=== PATIENT | male | born 1970 | race Caucasian/White ===

== ENCOUNTER 2017-06-05 10:31 | Emergency (ER) | payer BC, OTHER ==
[2017-06-05 10:45] VITALS: TEMP 98.4; BMI 28.0
[2017-06-05 11:38] LABS: EOSINOPHIL 3.7 % (0-4.5); MCH 32.5 pg (25.7-33.7); MCHC 34.5 g/dl (32.0-35.9); MEAN CELL VOLUME 94.2 fl (80-96); MEAN PLT VOLUME 7.7 fl (7.5-11.1); NEUTROPHILS 52.8 % (42.8-82.8); PLATELET COUNT 269 K/MM3 (134-434); RDW 12.8 % (11.9-15.9); WHITE BLOOD COUNT 8.7 K/mm3 (4.0-10.0)
--- NOTE | 2017-06-05 12:02 | PDOC ---
History of Present Illness <Bakari Malcolm - Last Filed: 06/05/17 12:51> <Gary Norman - Last Filed: 06/05/17 16:27> - General Chief Complaint: Chest Pain Stated Complaint: CHEST PRESSURE Time Seen by Provider: 06/05/17 10:56 - History of Present Illness Initial Comments: 06/05/17 11:58 "The patient is a 46 year old male with a significant PMH of asthma who presents to the emergency department with left sided chest pressure and shortness of breath for the past 2-3 weeks. The patient reports feeling a left- sided chest pressure that initially radiated across his chest but is since now localized on the left side. He reports using Advair and Albuterol inhaler with minimal relief. He denies SOB but endorses increased CREWS. Denies orthopnea. 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 Denies any asymmetric leg swelling. Denies h/o DVT/PE. The patient reports having a stress test done in the past which resulted normal. The patient denies headache and dizziness. Denies fever, chills, nausea, vomit, diarrhea and constipation. Denies dysuria, frequency, urgency and hematuria. Allergies: NKA FMHx: Brother had triple bypass surgery. Past surgical history: None reported. Social history: No reported cigarette, alcohol, or drug use. PCP: None reported. " (Gary Norman) Past History <Bakari Malcolm - Last Filed: 06/05/17 12:51> - Past Medical History Asthma: Yes COPD: No Hypercholesterolemia: Yes - Suicide/Smoking/Psychosocial Hx Smoking History: Never smoked Hx Alcohol Use: Yes (SOCIAL) Drug/Substance Use Hx: No <Gary Norman - Last Filed: 06/05/17 16:27> - Past Medical History Allergies/Adverse Reactions: Allergies Allergy/AdvReac Type Severity Reaction Status Date / Time No Known Allergies Allergy Verified 06/05/17 10:52 Home Medications: Ambulatory Orders Salmeterol/Fluticasone [Advair 100Mcg/50Mcg -] 1 inh PO BID 06/05/17 Review of Systems <Bakari Malcolm - Last Filed: 06/05/17 12:51> <Gary Norman - Last Filed: 06/05/17 16:27> - Review of Systems Comments:: 06/05/17 11:59 "GENERAL/CONSTITUTIONAL: No fever or chills. No weakness. HEAD, EYES, EARS, NOSE AND THROAT: No change in vision. No ear pain or discharge. No sore throat. CARDIOVASCULAR: (+) Left-sided chest pressure. RESPIRATORY: No cough, wheezing, or hemoptysis. GASTROINTESTINAL: No nausea, vomiting, diarrhea or constipation. GENITOURINARY: No dysuria, frequency, or change in urination. MUSCULOSKELETAL: No joint or muscle swelling or pain. No neck or back pain. SKIN: No rash NEUROLOGIC: No headache, vertigo, loss of consciousness, or change in strength/ sensation. ENDOCRINE: No increased thirst. No abnormal weight change. HEMATOLOGIC/LYMPHATIC: No anemia, easy bleeding, or history of blood clots. ALLERGIC/IMMUNOLOGIC: No hives or skin allergy. " (Gary Norman) *Physical Exam <Bakari Malcolm - Last Filed: 06/05/17 12:51> <Gary Norman - Last Filed: 06/05/17 16:27> - Vital Signs Last Vital Signs Temp Pulse Resp BP Pulse Ox 98.4 F 98 H 20 161/106 97 06/05/17 10:42 06/05/17 10:42 06/05/17 10:42 06/05/17 10:42 06/05/17 10:42 - Physical Exam Comments: 06/05/17 11:59 "GENERAL: Awake, alert, and fully oriented, in no acute distress HEAD: No signs of trauma EYES: PERRLA, EOMI, sclera anicteric, conjunctiva clear ENT: Auricles normal inspection, hearing grossly normal, nares patent, oropharynx clear without exudates. Moist mucosa NECK: Nontender, no stepoffs, Normal ROM, supple, no lymphadenopathy, JVD, or masses LUNGS: Breath sounds equal, clear to auscultation bilaterally. No wheezes, and no crackles HEART: Regular rate and rhythm, normal S1 and S2, no murmurs, rubs or gallops ABDOMEN: Soft, nontender, normoactive bowel sounds. No guarding, no rebound. No masses EXTREMITIES: Normal range of motion, no edema. No clubbing or cyanosis. No cords, erythema, or tenderness NEUROLOGICAL: Cranial nerves II through XII intact. 5/5 strength and sensation in all extremities, Normal speech, normal gait SKIN: Warm, Dry, normal turgor, no rashes or lesions noted. " (Gary Norman) Heart Score/ECG Review <Bakari Malcolm - Last Filed: 06/05/17 12:51> - History History: Slightly suspicious - Electrocardiogram EKG: Normal - Age Age: 45-65 - Risk Factors Risk Factors Heart Score: Yes Positive family hx of cardiac disease Based on the list above the patient has:: 1-2 risk factors - Troponin Troponin: </= normal limit - Score Heart Score - Total: 2 <Gary Norman - Last Filed: 06/05/17 16:27> - ECG Impressions Comment:: 06/05/17 12:00 NSR, no KOFI/STDs, no TWIs, [place] wnl, intervals wnl, rate 86 (Gary Norman) ED Treatment Course - LABORATORY CBC & Chemistry Diagram: 06/05/17 11:18 06/05/17 11:18 <Bakari Malcolm - Last Filed: 06/05/17 12:51> - LABORATORY CBC & Chemistry Diagram: 06/05/17 11:18 06/05/17 11:18 <Gary Norman - Last Filed: 06/05/17 16:27> - ADDITIONAL ORDERS Additional order review: Laboratory Results 06/05/17 06/05/17 06/05/17 15:05 11:18 11:18 D-Dimer Sodium Cancelled 139 Potassium Cancelled 3.8 Chloride Cancelled 107 Carbon Dioxide Cancelled 26 Anion Gap Cancelled 6 L BUN Cancelled 16 Creatinine Cancelled 1.3 Creat Clearance w eGFR Cancelled 58.92 Random Glucose Cancelled 79 Calcium Cancelled 8.7 Total Bilirubin Cancelled 0.7 AST Cancelled 28 ALT Cancelled 43 Alkaline Phosphatase Cancelled 75 Creatine Kinase 73 882 H Creatine Kinase Index 0.6 CK-MB (CK-2) 5.591 H Troponin I < 0.02 < 0.02 B-Natriuretic Peptide 84.28 Total Protein Cancelled 7.8 Albumin Cancelled 4.0 06/05/17 11:18 D-Dimer < 200 Sodium Potassium Chloride Carbon Dioxide Anion Gap BUN Creatinine Creat Clearance w eGFR Random Glucose Calcium Total Bilirubin AST ALT Alkaline Phosphatase Creatine Kinase Creatine Kinase Index CK-MB (CK-2) Troponin I B-Natriuretic Peptide Total Protein Albumin 06/05/17 11:18 RBC 4.99 MCV 94.2 MCHC 34.5 RDW 12.8 MPV 7.7 Neutrophils % 52.8 Lymphocytes % 36.3 Monocytes % 6.2 Eosinophils % 3.7 Basophils % 1.0 - RADIOLOGY Radiology Studies Ordered: Category Date Time Status CHEST PA & LAT [RAD] Stat Radiology 06/05/17 11:14 Completed Medical Decision Making <Bakari Malcolm - Last Filed: 06/05/17 12:51> <Gary Norman - Last Filed: 06/05/17 16:27> - Medical Decision Making 06/05/17 12:00 46 M with left sided chest pressure x 2-3 weeks. Atypical in nature. EKG with no signs of ischemia, making ACS unlikely. However, pt has +FH of OR (brother), so will r/o OR with trop. Also consider PE, as pt is business management manager. Pt however has no clinical signs or symptoms of DVT and has normal vitals. - Labs, trop, BNP, ddimer - CXR 06/05/17 16:18 CBC,CMP WBC 8.7 K/mm3 (4.0-10.0) 06/05/17 11:18 RBC 4.99 M/mm3 (4.00-5.60) 06/05/17 11:18 Hgb 16.2 GM/dL (11.7-16.9) 06/05/17 11:18 Hct 47.0 % (35.4-49) 06/05/17 11:18 MCV 94.2 fl (80-96) 06/05/17 11:18 MCH 32.5 pg (25.7-33.7) 06/05/17 11:18 MCHC 34.5 g/dl (32.0-35.9) 06/05/17 11:18 RDW 12.8 % (11.9-15.9) 06/05/17 11:18 Plt Count 269 K/MM3 (134-434) 06/05/17 11:18 MPV 7.7 fl (7.5-11.1) 06/05/17 11:18 Neutrophils % 52.8 % (42.8-82.8) 06/05/17 11:18 Lymphocytes % 36.3 % (8-40) 06/05/17 11:18 Monocytes % 6.2 % (3.8-10.2) 06/05/17 11:18 Eosinophils % 3.7 % (0-4.5) 06/05/17 11:18 Basophils % 1.0 % (0-2.0) 06/05/17 11:18 Sodium 139 mmol/L (136-145) 06/05/17 11:18 Potassium 3.8 mmol/L (3.5-5.1) 06/05/17 11:18 Chloride 107 mmol/L (98-107) 06/05/17 11:18 Carbon Dioxide 26 mmol/L (21-32) 06/05/17 11:18 Anion Gap 6 (8-16) L 06/05/17 11:18 BUN 16 mg/dL (7-18) 06/05/17 11:18 Creatinine 1.3 mg/dL (0.7-1.3) 06/05/17 11:18 Creat Clearance w eGFR 58.92 (>60) 06/05/17 11:18 Random Glucose 79 mg/dL (74-106) 06/05/17 11:18 Calcium 8.7 mg/dL (8.5-10.1) 06/05/17 11:18 Total Bilirubin 0.7 mg/dL (0.2-1.0) 06/05/17 11:18 AST 28 U/L (15-37) 06/05/17 11:18 ALT 43 U/L (12-78) 06/05/17 11:18 Alkaline Phosphatase 75 U/L (45-117) 06/05/17 11:18 Creatine Kinase 882 IU/L (39-308) H 06/05/17 11:18 Creatine Kinase Index 0.6 % (0.0-5.0) 06/05/17 11:18 CK-MB (CK-2) 5.591 ng/mL (0.5-3.6) H 06/05/17 11:18 Troponin I < 0.02 ng/ml (0.00-0.05) 06/05/17 11:18 B-Natriuretic Peptide 84.28 pg/ml (5-125) 06/05/17 11:18 Total Protein 7.8 g/dl (6.4-8.2) 06/05/17 11:18 Albumin 4.0 g/dl (3.4-5.0) 06/05/17 11:18 06/05/17 16:26 Trop negative x2. Pt well appearing, vitals normal. Clinically stable for DC. (Gary Norman) *DC/Admit/Observation/Transfer <Bakari Malcolm - Last Filed: 06/05/17 12:51> <Gary Norman - Last Filed: 06/05/17 16:27> Diagnosis at time of Disposition: Chest pain - Discharge Dispostion Disposition: HOME - Referrals Referrals: [facility] [Primary Care Provider] - - Patient Instructions Printed Discharge Instructions: DI for Chest Pain Additional Instructions: You must follow up with a tobacco stripping machine operator to have your chest pain further evaluated. Call the number provided to make an appointment within 1 week. If you experience worsening chest pain, shortness of breath, or any other concerning symptoms, return to the ER immediately. - Post Discharge Activity - Attestations Scribe Attestion: 06/05/17 12:51 Documentation prepared by Bakari Malcolm, acting as medical associate for Gary Norman MD. (Bakari Malcolm) Physician Attestion: 06/05/17 16:18 I, Dr. Gary Norman MD, attest that this document has been prepared under my direction and personally reviewed by me in its entirety. I further attest, that it accurately reflects all work, treatment, procedures and medical decision -making performed by me. (Gary Norman)
[2017-06-05 12:18] LABS: ANION GAP 6 (8-16); BILIRUBIN,TOTAL 0.7 mg/dL (0.2-1.0); CALCIUM 8.7 mg/dL (8.5-10.1); CO2 26 mmol/L (21-32); CREATININE 1.3 mg/dL (0.7-1.3); GLUCOSE,RANDOM 79 mg/dL (74-106); SGOT/AST 28 U/L (15-37); SGPT/ALT 43 U/L (12-78); TOT PROT 7.8 g/dl (6.4-8.2)
[2017-06-05 12:22] LABS: ALK PHOS 75 U/L (45-117); CPK 882 IU/L (39-308); TROPONIN I < 0.02 ng/ml (0.00-0.05)
[2017-06-05 15:57] LABS: CPK 73 IU/L (39-308); TROPONIN I < 0.02 ng/ml (0.00-0.05)
[2017-06-05 16:48] VITALS: BP 151/80; PULSE 84
--- NOTE | 2017-06-06 11:37 | EKG ---
Test Reason : Blood Pressure : / mmHG Vent. Rate : 086 BPM Atrial Rate : 086 BPM P-R Int : 128 ms QRS Dur : 102 ms QT Int : 340 ms P-R-T Axes : 065 051 025 degrees QTc Int : 406 ms NORMAL SINUS RHYTHM POSSIBLE LEFT ATRIAL ENLARGEMENT BORDERLINE ECG NO PREVIOUS ECGS AVAILABLE Confirmed by KAITLYN ARGUELLO, RJ ([id number]) on 06/06/2017 11:37:27 AM Referred By: Confirmed By:RJ SAHNI MD
== END 2017-06-05 16:48 | disposition home or self-care (01) ==
LOC: JER 10:31
DX: R07.89 Other chest pain (principal)
CPT/HCPCS: 36415; 71020-TC; 80053; 82550; 82553; 83880; 84484; 85025; 85379; 93005; 93010; 99283-25